=== PATIENT | male | born 1960 | race Caucasian/White ===

== ENCOUNTER 2019-04-13 11:18 | Day surgery (SDC) | payer OTHER, SELFPAY ==
[2019-04-11 12:41] VITALS: BMI 26.6
[2019-04-13] VITALS (9 sets, daily range): BP systolic 114–150; BP diastolic 60–91; PULSE 52–68; RESP 10–15; TEMP 36.1–36.8; O2SAT 94–100; BMI 26.6
--- NOTE | 2019-04-13 13:12 | PM.PREOP ---
Pre-operative Note Interval Note History & Physical reviewed/Exam performed by Physician: Yes Changes to H&P: No
[2019-04-13] MEDS: CEFAZOLIN 2 GM/100 ML FROZ.PIGGY IV (13:55)
--- NOTE | 2019-04-13 14:19 | SUR.OPER ---
Supine on padded OR bed, head on pillow, left arm secured on padded arm boards at <90 degrees abduction,right arm draped free on black hand table, legs uncrossed, safety belt at thigh, tape over blanket over lower legs.
[2019-04-13] MEDS: BUPIVACAINE 0.5% W/ EPI (PF) VIAL 30 ML INJ (14:26)
[2019-04-13] MEDS: LACTATED RINGERS 1,000 ML 42 ML IV (14:40)
--- NOTE | 2019-04-13 15:08 | PM.OP.1 ---
Operative Date/Time/Diagnoses Date of procedure: 04/13/19 Time of procedure: 14:00 Pre-op diagnosis: Right 5th finger Dupuytren's contracture Post-op diagnosis: same Procedure & Clinicians Procedure: Right 5th finger Dupuytren's contracture release Same procedure as scheduled: Yes Indications: Right 5th finger Dupuytren's contracture Surgeon: Paulino Da Silva Click Yes if Unassisted: Yes Anesthesia Type: General Operative Notes Findings: Large cord formation as well as nodule formation in the finger resulting in a contracture mainly to the MCP joint of the 5th finger of 50?. Rest of the hand free of any contractures. Closure Type: primary Specimen(s): none sent Estimated Blood Loss (mL): 0 Blood products transfused: none Tourniquet time (min): 43 Procedure in detail: On date of service, patient was met in the holding area. The surgery was once again discussed with the patient and any remaining questions or concerns were answered fully. The operative site was signed and witnessed by the OR staff. Patient was taken back to the operating theater and placed on the operating table in a supine position. Great care was taken to ensure that all bony prominences were properly padded. Time-out was performed verifying patient's name, procedure, and operative site. A well-padded tourniquet was placed up along the upper extremity. The arm was then prepped and draped in the normal sterile fashion. Esmarch was used to exsanguinate the limb and the tourniquet was turned up to 250 mm of mercury. The a Milad type incision was made starting at the finger crease at the PIP joint and going proximal to the just proximal to the proximal palmar crease. Fifteen blade was used to incise through skin and fascial tissue. Sharp dissection was continued with the deep knife excising the skin and dermal tissue off the cord formation. The neurovascular bundles were found proximally and dissected free up into the finger. The radial digital nerve was not involved with the cord but the ulnar digital nerve was involved with the cord up into the finger. Great care was taken to ensure that the nerves were dissected completely free of the cord. Patient also had a lateral cord formation involving the PIP joint. Once the finger and palm were fully exposed and we had good visualization of the cord as well as our neurovascular bundles, the cord formation was dissected free from the flexor tendon proximally. This dissection was continued up into the finger and till the entire cord was removed in 1 piece. This allowed us to fully extend both the MCP as well as PIP joints. The digital nerves were inspected and were free of any damage throughout the entire incision. The wound was then copiously irrigated and then closed with 5 0 nylon. Finger was cleaned, dried, and dressed. Patient was placed into a splint keeping the small finger fully extended. Complications: none Post-operative Condition: stable Disposition: PACU Plan for aftercare: Patient will follow our postoperative protocol for a Dupuytren's contracture release.
[2019-04-13] MEDS: HYDROCODONE/ACET 5/325 TABLET 1 TAB PO (15:47)
== END 2019-04-13 16:24 | disposition home or self-care (01) ==
PROVIDERS: Visit Provider Orthopaedic Surgery
PROC: (CPT 26045; principal; 2019-04-13 12:45)
DX: M72.0 Palmar fascial fibromatosis [Dupuytren] (principal); G47.30 Sleep apnea, unspecified; M41.9 Scoliosis, unspecified
CPT/HCPCS: 26123; J0690; J1100; J2405; J2704; J3010

== ENCOUNTER 2023-10-29 08:45 | Day surgery (SDC) | payer OTHER, SELFPAY ==
[2023-10-29 10:44] VITALS: BP 115/77; PULSE 68; RESP 18; TEMP 36.8; O2SAT 96
[2023-10-29] MEDS: LACTATED RINGERS 1,000 ML 42 ML IV (11:03)
--- NOTE | 2023-10-29 11:30 | PM.HP.1 ---
History of Present Illness History of Present Illness Date Patient Seen: 10/29/23 Time Patient Seen: 11:30 Chief complaint: Colonoscopy Narrative: Last scope was 10 years ago. No family history or symptoms concerning for colon cancer FOR[facility]LY [facility], [facility] Medical History (Updated 04/11/19 @ 12:49 by Renita Burton RN) SCC (squamous cell carcinoma) (~04/2019) Scoliosis Sleep apnea Surgical History (Updated 04/11/19 @ 12:49 by Renita Burton RN) History of total knee arthroplasty Status post total shoulder arthroplasty Social History household members: family Smoking Status: Never smoker alcohol intake: current Meds Home Medications and Allergies Home Medications Medication Instructions Recorded Confirmed Type atorvastatin 20 mg tablet 20 mg PO DAILY 10/29/23 10/29/23 History meloxicam 15 mg tablet 15 mg PO DAILY 10/29/23 10/29/23 History omeprazole 20 mg capsule,delayed 20 mg PO DAILY 10/29/23 10/29/23 History release Allergies Allergy/AdvReac Type Severity Reaction Status Date / Time No Known Drug Allergies Allergy Verified 10/29/23 10:38 Review of Systems Review of Systems ROS: Yes All systems reviewed with the patient and are negative except as otherwise documented Exam Vital Signs (past 8 hours): - 10/29/23 10:44 Temperature 98.3 F Pulse Rate 68 Respiratory Rate 18 Blood Pressure 115/77 Pulse Oximetry 96 Oxygen Delivery Method Room Air Oxygen Delivery Method Room Air Const General: cooperative, healthy appearing and comfortable Nutritional Appearance: average body habitus HENAR Head: normocephalic and atraumatic Eyes General: appearance normal, both eyes and all related structures Neck Neck: trachea midline Resp Effort & Inspection: normal respiratory effort and able to speak in complete sentences Cardio Rate: regular rate Rhythm: regular rhythm GI Palpation: soft and No tender Skin General: elasticity normal and turgor normal Neuro General: patient alert, patient awake and patient oriented x3 Cognition: normal cognition Psych Mental Status: mental status grossly normal Assessment & Plan Assessment & Plan narrative: Colon cancer screening using colonoscopy with anesthesia Time Spent With Patient Time with patient: less than 30 minutes
--- NOTE | 2023-10-29 11:58 | PM.OP.COLON ---
Operative Date/Time/Diagnoses Date of procedure: 10/29/23 Time of procedure: 11:58 Pre-op diagnosis: Colon cancer screening Post-op diagnosis: same Procedure & Clinicians Study performed: Colonoscopy with anesthesia Same procedure as scheduled: Yes Indications: Colon cancer screening Surgeon: Georgette Daniels Procedure Notes Procedure in detail: Preop diagnosis: Colon cancer screening Postop diagnosis: Same Operative procedure: Colonoscopy with anesthesia Surgeon: Keshia Daniels MD Findings: Normal colonoscopy no polyps, no diverticulosis Procedure: Patient placed in a lateral position. Rectal exam performed showing normal tone no masses. Colonoscope inserted into rectum advanced to ileocecal valve with minimal difficulty. Insufflation extraction scope including retroflex in the rectum had the above findings. Impression: Normal colonoscopy. No polyps Plan: Repeat colonoscopy in 10 years unless otherwise indicated by change in clinical condition Specimen(s): none sent Complications: none Post-procedure Recommendations: Colonoscopy in 10 years
[2023-10-29 12:01] VITALS: BP 102/72; PULSE 70; RESP 14; TEMP 36.2; O2SAT 93
[2023-10-29 12:06] VITALS: BP 105/71; PULSE 65; RESP 16; O2SAT 95
[2023-10-29 12:11] VITALS: BP 99/70; PULSE 76; RESP 14; O2SAT 95
[2023-10-29 12:18] VITALS: BP 106/75; PULSE 73; RESP 14; TEMP 36.2; O2SAT 96
[2023-10-29 12:21] VITALS: BP 114/80; PULSE 67; RESP 16; O2SAT 95
== END 2023-10-29 12:34 | disposition home or self-care (01) ==
PROVIDERS: Referring Provider Surgery; Visit Provider Surgery
PROC: 0DJD8ZZ Inspection of Lower Intestinal Tract, Via Natural or Artificial Opening Endoscopic (ICD-10-PCS; CPT 45378; principal; 2023-10-29 09:45)
DX: Z12.11 Encounter for screening for malignant neoplasm of colon (principal)
CPT/HCPCS: 45378; J2704